=== PATIENT | male | born 1975 | race Hispanic/Latino ===

== ENCOUNTER 2018-11-07 18:05 | Emergency (ER) | payer OTHER ==
[2018-11-07 18:11] VITALS: BMI 31.0
[2018-11-07 18:15] VITALS: PULSE 67; O2SAT 100
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
[2018-11-07 20:54] VITALS: BP 147/89; RESP 18; TEMP 98
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
== END 2018-11-07 20:55 | disposition home or self-care (01) ==
LOC: C.ER 18:05
DX: S42.402A Unspecified fracture of lower end of left humerus, initial encounter for closed fracture (principal); V09.3XXA Pedestrian injured in unspecified traffic accident, initial encounter